=== PATIENT | female | born 1955 | race Caucasian/White ===

== ENCOUNTER → 2016-10-08 | Day surgery (SDC) | payer OTHER ==
[2016-10-08 09:58] LABS: CREATININE 1.1 mg/dL (0.5-1.0); POTASSIUM 4.7 mmol/L (3.5-5.1)
== END | disposition home or self-care (01) ==
LOC: FAS 08:42
PROVIDERS: Anesthesiology
DX: K62.5 Hemorrhage of anus and rectum (principal); F32.9 Major depressive disorder, single episode, unspecified; K21.9 Gastro-esophageal reflux disease without esophagitis; I10 Essential (primary) hypertension; M19.90 Unspecified osteoarthritis, unspecified site; F17.210 Nicotine dependence, cigarettes, uncomplicated; Z90.49 Acquired absence of other specified parts of digestive tract; Z90.710 Acquired absence of both cervix and uterus; Z83.3 Family history of diabetes mellitus; Z79.82 Long term (current) use of aspirin; Z79.899 Other long term (current) drug therapy; Z98.890 Other specified postprocedural states
CPT/HCPCS: 36415; 80048; J2704

== ENCOUNTER 2020-06-01 17:41 | Emergency (ER) | payer OTHER ==
[2020-06-01 18:31] LABS: BASOPHIL 0.7 % (0-2); EOSINOPHIL 0.8 % (0-5); HCT 48.9 % (37.0-47.0); HGB 16.2 g/dl (12.5-16.0); LYMPHOCYTE 25.9 % (15-48); MCH 30.3 pg (25.0-31.0); MCHC 33.1 g/dL (32.0-36.0); MCV 91.6 fL (78.0-100.0); MPV 11.8 fL (6.0-9.5); NEUTROPHIL 65.3 % (41-80); PLT 251 K/uL (150-400); RBC 5.34 M/uL (4.20-5.40); RDW 13.2 % (11.5-14.0)
[2020-06-01 18:33] LABS: NRBC 0
[2020-06-01 18:48] LABS: BILIRUBIN - TOTAL 0.2 mg/dL (0.2-1.0); BUN/CREAT RATIO (CALC) 17.3 RATIO; CREATININE 1.56 mg/dL (0.51-0.95); GLOBULIN (CALCULATION) 3.7 g/dL; POTASSIUM 3.2 mmol/L (3.5-5.1); TOTAL PROTEIN 7.7 g/dL (6.4-8.2)
[2020-09-04] MEDS ORDERED: MEDROL 4MG DOSEP4 MG PO (14:34)
[2020-09-04] MEDS ORDERED: NEURONTIN300 MG PO (14:34)
[2020-09-05] MEDS ORDERED: LIDOCAINE PAIN1 EACH TOP (11:19)
[2020-11-11] MEDS ORDERED: NEURONTIN300 MG PO (13:14)
[2020-11-20] MEDS ORDERED: GABAPENTIN100 MG PO (09:11)
== END 2020-06-01 19:30 | disposition home or self-care (01) ==
LOC: FER 17:41
PROVIDERS: Emergency Medicine
DX: I10 Essential (primary) hypertension (principal); M54.2 Cervicalgia; G89.29 Other chronic pain; F17.210 Nicotine dependence, cigarettes, uncomplicated; Z79.899 Other long term (current) drug therapy; Z79.01 Long term (current) use of anticoagulants; Z79.82 Long term (current) use of aspirin; Z79.891 Long term (current) use of opiate analgesic
CPT/HCPCS: 36415; 80053; 84484; 85025; 99283